=== PATIENT | female | born 1975 | race Caucasian/White ===

== ENCOUNTER 2021-02-07 04:56 | Emergency (ER) | payer SELFPAY ==
[~2021-02-07] VITALS: Ht 162.6 cm; Wt 68.0 kg
[2021-02-07 05:11] VITALS: BP 144/69
--- NOTE | 2021-02-07 05:11 | NUR ---
SULMA 880 FROM HOME FOR C/O DIZZINESS, "BURNINIG SENSATION IN THE MOUTH,AND NAUSEA" AND R FOOT TINGLING SENSATION S/P TAKING GUMMY BEAR TO ER BED 10
--- NOTE | 2021-02-07 05:13 | NUR ---
[employer] AT BED SIDE SPEAKING TO THE PT
== END 2021-02-07 06:13 | disposition home or self-care (01) ==
LOC: ER 04:56
DX: F12.10 Cannabis abuse, uncomplicated (principal); R42 Dizziness and giddiness; E03.9 Hypothyroidism, unspecified

== ENCOUNTER 2024-08-12 01:58 | Inpatient (IN) | payer BC, OTHER ==
[~2024-08-12] VITALS: Ht 160 cm; Wt 77.6 kg
[2024-08-12] MEDS: ONDANSETRON HCL/PF 4 MG/2 ML VIAL IVP ONE (02:30)
[2024-08-12] MEDS: MORPHINE SULFATE INJ 2 MG/ML DISP.SYRIN IV ONE (02:30)
[2024-08-12] MEDS: FAMOTIDINE/PF INJ 20 MG/2 ML VIAL IV ONE (02:30)
[2024-08-12] MEDS ORDERED: ONDANSETRON HCL/PF 4 MG/2 ML VIAL ONE (02:36)
[2024-08-12] MEDS ORDERED: FAMOTIDINE/PF INJ 20 MG/2 ML VIAL IV ONE (02:36)
[2024-08-12] MEDS ORDERED: MORPHINE SULFATE INJ 4 MG/ML DISP.SYRIN ONE (02:36)
[2024-08-12 02:46] LABS: BASOPHILS % (AUTO) 0.5 % (0.0-2.0); EOSINOPHILS # (AUTO) 0.2 K/uL (0.0-0.7); EOSINOPHILS % (AUTO) 1.7 % (0.0-6.0); HEMATOCRIT 36 % (33-45); HEMOGLOBIN 12.1 g/dL (11.5-14.8); LYMPHOCYTES # (AUTO) 3.2 K/uL (0.8-4.8); LYMPHOCYTES % (AUTO) 34.2 % (20.0-44.0); MEAN CORPUSCULAR HEMOGLOBIN 29 PG (26.0-33.0); MEAN CORPUSCULAR HGB CONC 34 g/dl (31.0-36.0); MEAN CORPUSCULAR VOLUME 85 fL (82-100); MONOCYTES # (AUTO) 0.6 K/uL (0.1-1.30); MONOCYTES % (AUTO) 6.2 % (2.0-12.0); NEUTROPHILS # (AUTO) 5.4 K/uL (1.8-8.9); NEUTROPHILS % (AUTO) 57.4 % (43.0-81.0); PLATELET COUNT (AUTO) 289 K/uL (150-450); RED BLOOD CELL COUNT(AUTO) 4.21 MIL/uL (4.0-5.2); RED CELL DISTRIBUTION WIDTH 14.4 % (11.5-15.0); WHITE BLOOD COUNT (AUTO) 9.4 K/uL (4.3-11.0)
[2024-08-12 02:56] LABS: CALCIUM, SERUM 8.8 mg/dL (8.5-10.1); CREATININE 0.7 mg/dL (0.6-1.3); POTASSIUM 3.5 mmol/L (3.5-5.1)
[2024-08-12 03:02] LABS: ALBUMIN 3.3 g/dL (3.4-5.0); BILIRUBIN,DIRECT 0.1 mg/dL (0.0-0.2); BILIRUBIN,TOTAL 0.2 mg/dL (0.2-1.0); TOTAL PROTEIN, SERUM 7.5 g/dL (6.4-8.2)
[2024-08-12] MEDS: IV NS 0.9% 1,000 ML IV ONE (03:22)
[2024-08-12] MEDS: METOCLOPRAMIDE HCL 10 MG/2 ML VIAL IV ONE (05:30)
[2024-08-12] MEDS ORDERED: METOCLOPRAMIDE HCL 10 MG/2 ML VIAL ONE (05:40)
[2024-08-12] MEDS ORDERED: Z GUARD REMEDY 4 OZ OINT TP PRN (07:00)
[2024-08-12] MEDS ORDERED: ONDANSETRON HCL/PF 4 MG/2 ML VIAL IVP PRN (07:00)
[2024-08-12] MEDS ORDERED: THYR90TA PO (07:30)
[2024-08-12 08:30] VITALS: BP 131/75; TEMP 98.1; O2SAT 99
[2024-08-12 09:30] VITALS: BP 131/75; TEMP 98.1; O2SAT 99
[2024-08-12] MEDS: IV NS 0.9% 1,000 ML IV PRN (11:44)
[2024-08-12] MEDS: PANTOPRAZOLE 40 MG VIAL IV SCH (11:50)
[2024-08-12 20:13] LABS: MAGNESIUM 1.9 mg/dL (1.8-2.4); PHOSPHORUS 4.4 mg/dL (2.5-4.9)
== END 2024-08-12 16:00 | disposition home or self-care (01) | DRG 392 ==
LOC: ER 02:11 → MED 06:19
PROVIDERS: ADMIT Internal Medicine; ATTEND Internal Medicine
DX: R11.2 Nausea with vomiting, unspecified (principal); R53.1 Weakness; E03.9 Hypothyroidism, unspecified; Z20.822 Contact with and (suspected) exposure to COVID-19
CPT/HCPCS: 80048-TC; 80076-TC; 83690-TC; 83735-TC; 84100-TC; 84484-TC; 84702-TC; 85025-TC; A4223; G0378; J2270; J2405; J2470; J2765; J3490; J7030